=== PATIENT | female | born 1970 | race Caucasian/White ===

== ENCOUNTER 2025-04-17 19:45 | Emergency (ER) | payer BC ==
[~2025-04-17] VITALS: Ht 170.2 cm; Wt 62.7 kg
[2025-04-17 19:57] VITALS: PULSE 85
--- NOTE | 2025-04-17 20:19 | Physician Documentation ---
History of Present Illness ~ Chief Complaint: Bite-insect Stated Complaint: BEE STING Time Seen by MD: 20:11 HPI Patient is a 54-year-old female that reports she was stung by a bee or a hornet yesterday. Today she has significant swelling at the site of the bite on her left thumb and has noticed a red streak up her arm consistent with lymphatic spread. Reports that the redness has increased significantly over the last 3 hours. Reports that they are traveling through from [facility] on their way to [place] go to deliver their child to college. Medication Reconciliation Allergies: Uncoded Allergies: ERYTHROMYCIN (Allergy, Severe, ANAPHYLACTIC, 04/17/25) BEE (Allergy, Unknown, 04/17/25) SULFA (Allergy, Unknown, 04/17/25) Scheduled Clindamycin HCl (Clindamycin HCl), 1 CAP PO Q8H Review of Systems ROS As stated above in the HPI, otherwise all systems are reviewed and negative. Physical Exam Vital Signs: Temperature: 98.9, Source: Oral, Heart Rate: 85, Respiratory Rate: 16, BP: 158/94, Pulse Oximetry: 100, Weight: 62.730 Oxygen Flow Rate: 0 Physical Exam VITALS: Reviewed and as above. GENERAL: Alert, no apparent distress. HEENT: Normocephalic, atraumatic, PERRL, EOMI, dry mucosa, no erythema RESPIRATORY: Lungs clear, normal breath sounds, no respiratory distress. CHEST: No accessory muscle use, no retractions CV: Regular rate, rhythm, no edema, no murmur, No: JVD GI: Soft, non-tender, bowels sounds present, no rebound, guarding, or rigidity BACK: No CVA tenderness, or swelling MUSCULOSKELETAL No deformities, no edema SKIN: Warm and dry, erythema and edema noted to left hand on the palmar aspect at the thumb, it is of lymphatic spread from origin of bite traveling up the arm to the axilla NEURO: Oriented x4, No motor or sensory deficit PSYCH: Normal mood and affect, no agitation Progress Results/Orders Results/Orders Completed Orders - ALIYA PARK Diphenhydramine Capsule (Benadryl Capsul (04/17/25 20:15) Methylprednisolone Sod Succ (Solumedrol (04/17/25 20:15) Clindamycin Capsule (Cleocin Capsule) (04/17/25 20:40) Medications Received in ER Medications (Trade) Dose Ordered Sig/Laury Route PRN Reason Start Time Stop Time Status Last Admin Dose Admin (Benadryl capsule) 25 mg ONCE ONCE PO 04/17/25 20:15 04/17/25 20:16 DC 04/17/25 21:07 25 MG (Cleocin capsule) 300 mg ONCE ONCE PO 04/17/25 20:40 04/17/25 20:41 DC 04/17/25 21:07 300 MG Vital Signs 04/17/25 19:57 Temp 98.9 Pulse 85 Resp 16 B/P (MAP) 158/94 Pulse Ox 100 O2 Flow Rate 0 Medical Decision Making Findings This patient who presents with edema and erythema with lymphatic spread consistent with infectious process secondary to bee or hornet sting. History and exam findings not consistent with dangerous etiologies of rash such as SJS/TEN, or secondary dangerous causes such as petechial rashes from thrombocytopenia or rickettsial infections. Rash does not appear urticarial with no signs of anaphylaxis either. Plan at this time is to treat with antihistamine and antibiotics. First dose given here in the emergency department we will re- evaluate patient. Patient re-evaluated. No additional spread at this time. Patient is comfortable being discharged understands education and instructions provided for need to return to an emergency department and need to follow up with her primary care provider. Please take prescribed antibiotic as directed. Please take Benadryl 25-50 mg prior to bed couple of days in an effort to help reduce the histamine response. Differential Dx:Considerations: Include: Abrasion, Allergic reaction, Anaphylaxis, Cellulitis, Contusion, Fracture, Hematoma, Insect envenomation, Laceration, Neurovascular injury, Punture wound, Retained foreign body, Urticaria, Other Departure Disposition: 01 HOME / SELF CARE / HOMELESS Impression: Primary Impression: Insect bites Additional Impressions: Bee sting Infection Allergic reaction Condition: Stable Discharge Instructions: Insect Bite, Adult, [id number], Cellulitis, Adult Additional Instructions: This patient who presents with edema and erythema with lymphatic spread consistent with infectious process secondary to bee or hornet sting. History and exam findings not consistent with dangerous etiologies of rash such as SJS/TEN, or secondary dangerous causes such as petechial rashes from thrombocytopenia or rickettsial infections. Rash does not appear urticarial with no signs of anaphylaxis either. Plan at this time is to treat antihistamine and antibiotics. First dose given here in the emergency department we will re-evaluate patient. Please follow up with the primary care provider when you reach her destination will return home. Please report to the closest emergency department if you have any worsening or recurrent symptoms you develop any fevers significant increase in swelling erythema progression of the lymphatic spread difficulty swallowing airway involvement or any other concerning symptoms. Please tell your antibiotic and take it as directed. Ibuprofen for discomfort as needed. Referrals: NO PRIMARY CARE PROVIDER (PCP) Prescriptions Clindamycin HCl (Clindamycin HCl) 300 Mg Capsule 1 CAP PO Q8H for 10 Days, #30 CAP Prov: ALIYA PARK 04/17/25 Education Educated: Patient Educated regarding: diagnosis, treatment, need for follow up Signature Scribe Signature: A Attestation: Scribed for Aliya Park by MJ Uribe . 04/17/25 21:23 ALIYA PARK Apr 17, 2025 20:19
[2025-04-17] MEDS ORDERED: CLIN-197 PO (20:48)
[2025-04-17 21:37] VITALS: BP 152/90; RESP 18; TEMP 98.6; O2SAT 99
== END 2025-04-17 21:40 | disposition home or self-care (01) ==
LOC: ER 19:46
DX: S61.052A Open bite of left thumb without damage to nail, initial encounter (principal); W55.81XA Bitten by other mammals, initial encounter; Y93.89 Activity, other specified; Y92.89 Other specified places as the place of occurrence of the external cause; Y99.8 Other external cause status
CPT/HCPCS: 99283; Q0163